=== PATIENT | female | born 1955 | race Caucasian/White ===

== ENCOUNTER → 2020-02-13 14:57 | Outpatient (CLI) | payer OTHER, SELFPAY ==
[2020-02-16 09:51] LABS: COVID19 Sendout Not Detected (Not Detect)
== END ==
PROVIDERS: Visit Provider Physician Assistant
DX: Z11.59 Encounter for screening for other viral diseases (principal)
CPT/HCPCS: 87635

== ENCOUNTER 2020-02-17 17:07 | Observation (INO) | payer OTHER, MEDICAID, SELFPAY ==
[2020-02-13 13:44] VITALS: BMI 38.5
[2020-02-16] VITALS (17 sets, daily range): BP systolic 114–157; BP diastolic 65–89; PULSE 52–71; RESP 8–20; TEMP 35.7–36.8; O2SAT 92–99; BMI 38.4
[2020-02-16] MEDS: LACTATED RINGERS 1,000 ML 42 ML IV (09:45)
[2020-02-16] MEDS: CELECOXIB 200 MG CAPSULE PO (09:45)
[2020-02-16] MEDS: ACETAMINOPHEN 325 MG TABLET 975 MG PO (09:45)
[2020-02-16] MEDS: PREGABALIN 75 MG CAPSULE PO (09:45)
--- NOTE | 2020-02-16 10:35 | PM.PREOP ---
Pre-operative Note COVID-19 COVID-19 status: Negative Result date/Date tested (Pos, Neg/Pending): 02/13/20 Interval Note History & Physical reviewed/Exam performed by Physician: Yes Changes to H&P: No
--- NOTE | 2020-02-16 10:51 | PM.OP.1 ---
Operative Date/Time/Diagnoses Date of procedure: 02/16/20 Time of procedure: 13:13 Pre-op diagnosis: Left knee osteoarthritis Post-op diagnosis: same Procedure & Clinicians Procedure: Left total knee replacement Same procedure as scheduled: Yes Indications: The patient has had progressively worsening left knee pain with radiographic changes consistent with arthritis. Non-operative management has failed and the patient has requested total knee replacement. The risks, benefits and alternatives to surgery were discussed with the patient prior to proceeding. Risks discussed included, but were not limited to, failure to relieve pain, stiffness, infection, nerve damage, deep venous thrombosis, pulmonary embolism, stroke, coma, heart attack, permanent paralysis and , as well as the potential need for eventual revision of the prosthetic. Surgeon: Felix Curtis Right Of Way Worker: Viet Mackey Click Yes if Unassisted: No Anesthesia Type: General, Spinal and Local Operative Notes Findings: Tricompartmental osteoarthritis worst in the medial compartment, moderate in patellofemoral and lateral compartments. Closure Type: primary Specimen(s): none sent Prosthetic devices, grafts, tissues, transplants, or devices: Implants used in this procedure were manufactured by the [employer] and included the BCS II Journey total knee replacement with a size 5 left Oxinium femoral component, a size 4 left non porous tibial base plate, a 10 mm cross-linked polyethylene tibial insert, and a 29 mm oval armani II patellar component. Applied: implant(s) Estimated Blood Loss (mL): 50 Blood products transfused: none Tourniquet time (min): 49 Procedure in detail: The patient was seen in the pre-operative area, where the left knee was identified as the operative site and this was marked with my initials. The patient received pre-operative antibiotics, and was taken to the operating room and placed on the operative table in the supine position. After satisfactory anesthesia, a flight crew time clerk out was performed. The left leg was encircled with a tourniquet about the proximal thigh, and the leg was prepared from the toes to the tourniquet with ChloroPrep in the usual fashion and draped through sterile drapes. The leg was elevated and exsanguinated with Eschmark bandage and the tourniquet inflated to 250 mmHg pressure. The knee was approached through an approximately 18 cm incision centered over the patella and carried into the knee through a medial parapatellar arthrotomy. The anterior osteophytes and soft tissues were removed. The rotational landmarks of [place]'s line and the transepicondylar axis were marked on the femur with electrocautery, and intramedullary guide holes for the femur and tibia were created. The distal femoral cut was made in 6 degrees of valgus using the intramedullary guide at the primary cut setting. The proximal tibial cut was then made using the intramedullary guide, taking 9 mm of bone off the less involved side. The extension gap was checked and the rotation of the femoral component confirmed with the gap balancing blocks. The anterior, posterior and chamfer cuts were then made. The posterior osteophytes and soft tissues were then removed. The posterior capsule was injected with part of a mixture of 60 ml 0.25% Marcaine mixed with 20 ml Exparel and 4 mg of morphine for post-operative pain control. The remainder of this mixture was injected into the capsule and subcutaneous tissues during cement curing. The tibia was prepared with the rotation set by an extra medullary guide. Trial tibial and femoral components were then placed and the intercondylar notch cut through the femoral trial. Range of motion was 0-135 degrees, with good stability throughout the range. The patella was then cut to accommodate the patellar prosthetic. There was no need for a lateral release. The trials were then removed, and the femoral hole plugged with a bone plug. The bone was prepared with pulsatile lavage, and dried with a sponge. Cement was applied and the final prosthetics placed. Excess cement was removed during and after cement curing. After confirming there was no extruded cement posteriorly, the final tibial insert was placed. The knee was copiously irrigated and the tourniquet deflated. Hemostasis was obtained. The capsule was closed with interrupted # 2 polyester sutures. The subcutaneous layer was closed with 3-0 Vicryl, and the skin with a running 3-0 V-Lock suture and Dermabond. An Aquacel Ag dressing was applied and the patient was taken to recovery having tolerated the procedure well. Complications: none Post-operative Condition: stable Disposition: PACU Plan for aftercare: The patient will be maintained on a standard total knee replacement protocol with weight bearing as tolerated. The patient will receive aspirin and sequential compression devices for DVT prophylaxis. The patient will be discharged home when safe for the home environment.
[2020-02-16] MEDS: CEFAZOLIN 2 GM/100 ML FROZ.PIGGY IV (11:42)
--- NOTE | 2020-02-16 12:03 | SUR.OPER ---
Supine on padded OR bed. Pillow under head, arms secured on padded armboards <90 degree abduction. Safety belt across torso. Non-operative leg secured with tape over blanket over lower leg. Operative leg secured in [place]. Foam padded brace at thigh of operative leg.
[2020-02-16] MEDS: BUPIVACAINE 0.25% W/ EPI 30 ML VIAL 60 ML INJ (12:45)
[2020-02-16] MEDS: BUPIVACAINE LIPOSOME 266 MG/20 ML VIAL INJ (12:46)
[2020-02-16] MEDS: TRANEXAMIC ACID 1,000 MG VIAL 1000 MG INJ ×2 (12:46→13:09)
[2020-02-16] MEDS: MORPHINE 4 MG/ML INJ INJ (12:46)
--- NOTE | 2020-02-16 13:13 | DI.RAD.S_ITS ---
PROCEDURE: XR KNEE LT 1TO2V INDICATIONS: post op total knee. TECHNIQUE: 2 view(s) of the knee acquired. COMPARISON: None. FINDINGS: Bones: Patient is status post knee joint arthroplasty. Hardware components are in expected positions. Visualized bony structures are intact. Soft tissues: Overlying postoperative changes are noted. IMPRESSION: Expected postoperative appearance. Dictated by: Julio Cesar Anton M.D. on 02/16/2020 at 15:54 Approved by: Julio Cesar Anton M.D. on 02/16/2020 at 15:54
--- NOTE | 2020-02-16 14:00 | SUR.PHASEI ---
1400 to room 222, report to VALERY Mohr via phone. Clothing bag and cpap to room with the patient.
[2020-02-16] MEDS: LACTATED RINGERS 1,000 ML 100 ML IV ×2 (14:42→23:33)
--- NOTE | 2020-02-16 15:39 | PC.NURSE ---
Patient arrived from PACU to room 222, VSS, denies pain. Oriented to room and call light, with call light placed within reach. Bed alarm activated for safety. Aquacel dressing to left knee with CHAO wrap surrounding noted to be CDI without drainage or bleeding, ice pack in place. +CMS, patient able to slowing bend left knee and start to lift off bed. Able to wiggle toes and do ankle pumps. Calf SCD's on. IV fluids started as ordered, and patient given ice chips per her request, advance diet as tolerated. Continue to monitor for post op void, denies urge to urinate at this time.
[2020-02-16] MEDS: ONDANSETRON 4 MG/2 ML INJ IV ×2 (16:32→20:51)
[2020-02-16] MEDS: IBUPROFEN 400 MG TABLET PO ×2 (16:32→20:55)
[2020-02-16] MEDS: HYDROMORPHONE 2 MG TABLET PO ×2 (18:39→22:53)
[2020-02-16] MEDS: ASPIRIN EC 81 MG TABLET PO (20:46)
[2020-02-16] MEDS: LOSARTAN 25 MG TABLET PO (20:46)
[2020-02-16] MEDS: DOCUSATE 100 MG CAPSULE PO (20:46)
[2020-02-16] MEDS: atenoloL 50 MG TABLET PO (20:47)
[2020-02-16] MEDS: ACETAMINOPHEN 325 MG TABLET 650 MG PO (20:47)
[2020-02-16] MEDS: diphenhydrAMINE 25 MG TABLET 50 MG PO (20:47)
[2020-02-17] VITALS (9 sets, daily range): BP systolic 116–148; BP diastolic 60–76; PULSE 57–87; RESP 16–19; TEMP 35.9–37.4; O2SAT 95–98
[2020-02-17] MEDS: IBUPROFEN 400 MG TABLET PO ×5 (00:40→18:16)
[2020-02-17] MEDS: HYDROMORPHONE 2 MG TABLET PO (04:24)
[2020-02-17 05:41] LABS: Hemoglobin 11.1 g/dL (12.0-16.0)
--- NOTE | 2020-02-17 07:52 | P.DS_ITS ---
History of Present Illness History of Present Illness Date Patient Seen: 02/17/20 Time Patient Seen: 07:52 Chief complaint: OPB Narrative: History and physical is contained in the chart previously completed note. Please refer to that note for this information. Discharge Providers Provider Discharge Date: 02/17/20 Primary care physician: SARAH Coles Consults: 02/04/20 14:29 Consult to Respiratory Therapy Evaluate & Treat Comment: INPT 02/15-[facility], awaiting CPAP Physician Instructions: Evaluate and treat 02/16/20 07:42 Consult to Anesthesiology Routine Comment: Consulting Provider: Anesthesiologist Reason for consultation: Regional block for post operative pain control 02/16/20 09:42 Consult to Respiratory Therapy Evaluate & Treat Comment: Physician Instructions: Evaluate and treat 02/16/20 14:31 Consult to Discharge Planning Routine Comment: Consult to Physical Therapy Evaluate & Treat Comment: Physician Instructions: postop TKA protocol Discharge provider: Felix Curtis MD Summary Hospital Course Discharge Diagnosis: 1. Left knee osteoarthritis 2. Post hemorrhagic anemia Hospital Course: The patient was admitted to the hospital and taken directly to the operating room on February 16, 2020. She underwent a left total knee re placement without complications. On postoperative day 1 she was stable and relatively pain-free. At the time of this dictation the plan is for her to have physical therapy today and be discharged later in the day. Status at Discharge Cognitive/behavioral status at discharge: oriented Functional status at discharge: uses cane/walker Overall status at discharge: patient is progressing back to baseline Time Spent with Patient Time spent: Less than 30 minutes Exam Vital Signs (past 8 hours): - 02/16/20 23:58 02/17/20 04:29 Temperature 96.8 F L 96.7 F L Pulse Rate 64 61 Respiratory Rate 16 16 Blood Pressure 135/75 116/60 Pulse Oximetry 96 97 Oxygen Delivery Method Room Air Oxygen Flow Rate 0 Narrative Exam Narrative: Left knee wound is dressed with no drainage on the bandage. Calf is soft. Light touch and motion are intact in the left lower extremity. Objective Labs Result Diagrams: 02/17/20 05:00 Labs: Laboratory Results - last 24 hr 02/17/20 05:00 Hgb 11.1 L Hct 33.0 L Discharge Assessment & Plan Assessment and Plan Assessment: Stable postop day 1 after left total knee replacement. She does have a mild, anticipated post hemorrhagic anemia. Plan of Treatment: Physical therapy this morning. Likely discharge later in the day. Follow up in my office in 10-14 days. Discharge prescriptions for hydromorphone and Vistaril have been provided. DVT prophylaxis will be with low-dose aspirin. Discharge Plan Discharge Plan Patient Disposition: Home Discharge Med Rec/Prescriptions Prescriptions: New acetaminophen 325 mg Tablet 650 mg PO TID 30 Days Qty: 180 RF: 0 aspirin 81 mg Tablet,Delayed Release (Dr/Ec) 81 mg PO BID 42 Days Qty: 84 RF: 0 hydromorphone 2 mg Tablet 2 mg PO Q4H PRN (Reason: Pain, Severe (7-10)) Qty: 40 RF: 0 hydroxyzine pamoate 25 mg Capsule 25 mg PO Q6HR PRN (Reason: Nausea) Qty: 30 RF: 0 Continued losartan 25 mg Tablet 25 mg PO BEDTIME RF: 0 diclofenac sodium 75 mg Tablet,Delayed Release (Dr/Ec) 75 mg PO BID RF: 0 atenolol 50 mg Tablet 50 mg PO BEDTIME RF: 0 diphenhydramine HCl [Benadryl] 25 mg Capsule 50 mg PO BEDTIME RF: 0 Discontinued acetaminophen 500 mg Tablet 1,000 mg PO DAILY RF: 0 Follow up/Referrals: Felix Curtis MD [Physician] - 2 Weeks Discharge Orders: Discharge (Order); Ordered 02/17/20 Ordered By: Felix Curtis Provider Discharge Instructions Diet: Diet as Tolerated and Regular Activity: You may bear weight as tolerated on your left leg. Cold/Heat Therapy: Apply ice for 15 minutes every hour as needed for pain control to the left knee. Skin/Wound/Dressing Care Report to your healthcare provider any signs of infection, such as:: chills, fever, night sweats, increased pain, unusual drainage and unusual redness Dressing: Remove the Erasto wrap 3 days after surgery. You may then shower nor selma. Leave the deeper dressing intact until your follow-up appointment. If the central strip of the deeper dressing becomes saturated with either water or blood, please call the office. Visit Report/Discharge Packet Instructions: DI for Knee Replacement Stand Alone Forms: Surgery Discharge Discharge Data Primary Care Provider: Corina Chaney Attending Provider: Felix Curtis Quality VTE Deep Vein Thrombosis/Pulmonary Embolism Present on Admission: No
[2020-02-17] MEDS: ONDANSETRON 4 MG ODT PO (08:07)
[2020-02-17] MEDS: ACETAMINOPHEN 325 MG TABLET 650 MG PO ×3 (08:08→21:31)
[2020-02-17] MEDS: HYDROMORPHONE 4 MG TABLET PO ×4 (08:08→23:48)
[2020-02-17] MEDS: ASPIRIN EC 81 MG TABLET PO ×2 (08:08→21:31)
[2020-02-17] MEDS: DOCUSATE 100 MG CAPSULE PO ×2 (08:08→21:32)
--- NOTE | 2020-02-17 09:30 | PT.IIE ---
Current Diagnoses Unilateral primary osteoarthritis, left knee (02/16/20) Surgery Performed Operation Date: 02/16/20 10:15 Actual Procedures p Total Knee Arthroplasty(Left) - Felix Curtis MD Surgical History (This Medical Record has been edited. Action required.) History of arthroplasty of right knee (Acute 11/2014) History of bladder surgery (Acute 2013) History of delivery (Acute) History of hysterectomy (Acute) History of removal of ovarian cyst (Acute) Hx of appendectomy (Acute) Hx of tonsillectomy (Acute) Medical History (This Medical Record has been edited. Action required.) Constipation (Acute) GERD (gastroesophageal reflux disease) (Acute) HLD (hyperlipidemia) (Acute) HTN (hypertension) (Acute) Kidney stones (Acute) Pre-diabetes (Acute) RBBB (Acute) Seasonal allergies (Acute) Sleep apnea (Acute) Physical Therapy Inpatient Evaluation/Re-Eval M1 PT/OT-IP Prior Functional Status Start: 02/17/20 12:00 Freq: NEEDED Status: Active Protocol: Document 02/17/20 09:30 AB (Rec: 02/17/20 12:15 [email or web address]) Medical Review Prior Functional Status Medical History Reviewed Yes Communication able to make needs known Mobility and Gait pt stated that she is independent with all mobilities and ambulation wtihout AD Social History Household Members none Living Arrangements House Number of Floors (Floors) One Floor Number of Stairs To Enter/Railing? 4 steps without rails to enter Home Environment Standard Height Toilet,Walk in Shower Home Equipment Raised Toilet Seat Without Armrests,Hand Held Shower Additional Social History Comment stated that her friend will stay with her and assist her at home as needed: at least 10 days per pt. pt stated that she has a standard walker and has access to a quad cane pt stated that she has an adjustable bed M2 PT-IP Current Condition Start: 02/17/20 12:00 Freq: NEEDED Status: Active Protocol: Document 02/17/20 09:30 AB (Rec: 02/17/20 12:15 AB [email or web address]) Physical Therapy Current Condition Current Condition Evaluation Date 02/17/20 Treatment Diagnosis s/p L TKA; difficulty in walking Onset Date 02/16/20 Weight Bearing Status Weight Bearing Status Weight Bear as Tolerated Allowed Weight Bearing Amount (enter % LLE WBAT or #) (%) M3 PT-IP Subjective Start: 02/17/20 12:00 Freq: NEEDED Status: Active Protocol: Document 02/17/20 09:30 AB (Rec: 02/17/20 12:15 [email or web address]) Subjective Physical Therapy Visit Type Type Initial Evaluation Visit Start Time 09:30 Visit Stop Time 10:10 Total Visit Minutes 40 Number of CUT OFF SAWYER Visits 0 Physical Therapy Visit Comments Patient Comments pt is agreeable to do PT Therapy Pain Assessment Pain When Pain Assessed At Rest Pain Present Pain Present Pain Reported Location Left Knee Intensity 3 Scale Used 7/10 with mobility Pain Management Techniques Apply Cold,Modification of Treatment,Re-positioning, Timing of Activity with Medications M4 PT-IP Mobility and Gait Start: 02/17/20 12:00 Freq: NEEDED Status: Active Protocol: Document 02/17/20 09:30 AB (Rec: 02/17/20 12:15 [id number]) PT-Bed Mobility Assessment Supine to Sit Supine to Sit Contact Guard Assistance,1 Person Assistance PT-Transfer Assessment Sit to and From Stand Sit to and from Stand Moderate Assistance,1 Person Assistance,Use of Upper Extremities Equipment Transfer Assistive Device Gait Belt,Front Wheeled Walker Orthotic/Prosthetic Devices or Brace: No Transfers Transfer Destination Toilet Transfer Technique ambulated using FWW Transfer Ability Level of Assist Moderate Assistance,1 Person Assistance,Use of Upper Extremities Comments Mobility Comments BP supine: 133/60 . completed supine to sit CGA and cues. pt was able to sit on EOB CGA. pt requested to use the toilet. completed sit to stand mod A and cues and ambulated towards the toilete using FWW mod A and cues for L quads activation. pt completed sit to stand from the toilet mod to max A using grab bar and ambulated towards the sink using FWW mod A and was able to maintain standing using FWW for support mod A while completing handwashing. pt c/o nausea and dizziness. instructed to walk to the chair and completed using FWW mod A. BP checked in sitti/72. positioned pt on chair. call light and table placed within reach. Gait Assessment Gait Gait Assistance Required: Moderate Assistance,1 Person Assist Distance (Feet) 10 Able to Maintain Weight Bearing Status Yes During Gait Assistive Devices Assistive Device Gait Belt,Front Wheeled Walker Orthotic/Prosthetic Devices or Brace: No Gait Deviations General Gait Pattern Antalgic,Decreased Stride Length,Decreased Feet Clearance,Step-to Gait Factors Limiting Gait Function Factors Limiting Gait Function Decreased Activity Tolerance, Decreased Strength,Limited Range of Motion,Pain,Poor Balance,Poor Safety Awareness Comments Gait Comments please refer to mobility section for details PT-Balance Assessment Sitting Balance and Reactions Static Sitting Balance Ability Good Dynamic Sitting Balance Ability Good Standing Balance and Reactions Static Standing Balance Ability Fair Dynamic Standing Balance Ability Poor Device Used FWW M5 PT-IP Objective Assessments Start: 02/17/20 12:00 Freq: NEEDED Status: Active Protocol: Document 02/17/20 09:30 AB (Rec: 02/17/20 12:15 AB [email or web address]) Orientation Orientation/Cognition Level of Alertness Alert Orientation Name Language Function Ability No Deficits Noted Safety Awareness Decreased Safety Awareness Memory Description No Deficits Noted Gross Range of Motion Lower Extremity ROM Assessment Left Impaired Impairments L knee flexion: ~ 50 dec L knee extension: 20 deg less to neutral Strength Lower Extremity Strength Assessment Left Impaired Hip 3+/ Knee 3+/5 Coordination Assessment Gross Coordination Gross Coordination WNL Sensation Assessment Sensation Gross Sensation WNL Muscle Tone Muscle Tone WNL Yes M6 PT-IP Treatment Start: 02/17/20 12:00 Freq: NEEDED Status: Active Protocol: Document 02/17/20 09:30 AB (Rec: 02/17/20 12:15 [facility] Treatment Education Education Provided Precautions,Weight Bearing Status,Post-Op Packet,Safety M7 PT-IP Assessment and Plan Start: 02/17/20 12:00 Freq: NEEDED Status: Active Protocol: Document 02/17/20 09:30 AB (Rec: 02/17/20 12:[facility] Summary Assessment and Plan Potential Rehabilitation Potential Good Status of Condition at Evaluation Evolving Summary Impairments Pain,ROM,Strength,Balance, Coordination,Sensation,Tone, Cognition,Bed Mobility, Transfers,Gait,Activity Tolerance Assessment Summary pt requiring mod to max A with mobility and unable to tolarate much activity with c/ o increase knee pain, nausea and dizziness. pt plans to go home with her friend to assist her. will conduct caregiver training when appropriate and also has to complete stair climbing prior to d/c. will continue to assess progress for safe d/c. Goals Bed Mobility Goal Independent Transfer Goal Standby Assistance,Front Wheeled Walker Gait Goal Standby Assistance,Front Wheel Walker Gait Distance 150 Other Goals ambulate using standard walker SBA 200 ft up/down 4 steps using cane CGA Days to Meet Goals 5 Frequency of Treatment Frequency Of Treatment Twice a Day Treatment Plan Physical Therapy Treatment Plan Bed Mobility Training,Transfer Training,Gait Training, Therapeutic Exercise,Balance Retraining,Post Op Education, Discharge Planning,Hot or Cold Pack,Neuromuscular Re-ed, Coordination Retraining,Manual Therapy Recommendations To Nursing Amount of Assist Needed 1 Person Assist Discharge Recommendations PT Discharge Recommendations Home with Assistance, Outpatient PT Equipment Needed for Home Before FWW if not safe with standard Discharge walker Transportation Needs at Discharge Private Vehicle
--- NOTE | 2020-02-17 11:56 | PC.NURSE ---
Day shift: Pt asleep at this time (1200). Has been asleep for approx 1 hour. Worn out and emotional after working w/ PT this AM. Medicated for knee pain per AUG. Pt does have stairs at home. Unlikely Pt will be able to d/c today. Pain present and her strength is weak. Will report this to or the PA. Pt has her CPAP on at this time.
--- NOTE | 2020-02-17 12:49 | CM.DANOTE ---
DCP/Assessment: Reviewed chart. Patient is a 64yr old female admitted for elective left knee surgery performed on 02-16-[address] Curtis. PCP listed is Corina Chaney. Primary payor is 1)[facility] 2)Medicaid. Met with patient explained CM/SW role. Patient sitting in recliner at time of visit. Patient teary eyed due to pain. Patient reports that she had just gotten up with therapy. Patient hopes to d/c home tomorrow. Patient has supportive friend/Barbara that will be staying with her. Patient has needed DME and has outpatient appointment with therapy arranged. P: Home when stable. LYNDA Arteaga Discharge Planning/Care Management CM Discharge Assessment Start: 02/17/20 12:46 Freq: Status: Active Protocol: Document 02/17/20 12:46 KJS (Rec: 02/17/20 12:49 KJS [id number]) Discharge Planning Assessment Assigned Hoop Bender [employer] LYNDA Arteaga Contact Information Barbara Munoz (friend) [phone] Advance Directives? No History Provided By Patient,Medical Record Prior Living Arrangements House Household Members none Independent with ADL's Yes Is patient alert and oriented? Yes Caregiver for Another No DME Already Rented / Owned FWW / Walker,Cane Patient/Family Preference OP PT Therapy Comment Has appointment on 02-20-20 at [facility] in [place]. Barriers to Discharge No Discharge Plan Home Transportation Arrangement Patient has friend/Barbara that will be providing transport and assisting with ADL's. Whiteboard Updated in Patient Room with Yes name and ext. # of Ho[employer] Bender Tank Review Status In Process Next Review Type Continued Stay Review Pre-Anesthesia Assessment Start: 02/04/20 13:56 Freq: Status: Complete Protocol: Document 02/13/20 13:44 CAB (Rec: 02/04/20 14:29 CAB [id number]) Pre-Anesthesia Assessment Patient Information Reviewed Via Phone Assessment Assessment Completed With Patient Diagnostic Results BMP/CMP,CBC,EKG Comment Outside labs/EKG scanned to records COVID screen @ 02/12-pending Primary Care Provider Shanel Beltran Seen Specialist in Last 12 Months Yes Specialist Seen Agricultural Produ[employer] Commission Agent,Orthopedist Primary Language [place]ish Senior Program Planner Required No Height 157.48 cm Weight 95.708 kg Body Mass Index (BMI) 38.5 Hearing Ability Normal Visual Assist Glasses Dentition Type Teeth, Natural Present,Teeth, Missing Barriers to Learning None,Visual Hx Anesthesia Reactions No Hx Family Anesthesia Reaction No Hx Malignant Hyperthermia No Hx Blood Transfusions No Anesthesia Review Requested No alcohol intake current alcohol intake frequency a few times a month Smoking Status Former smoker how long ago did patient quit smoking Quit 35 years ago Substance Use Type does not use Pain Present Pain Reported Musculoskeletal Symptoms Abnormal Gait,Back Pain, Difficulty Walking,Joint Pain, Neck Pain History of Falling (Recent or History of No ) Patient is completely paralyzed or No completely immobile Mental Status Oriented to own ability Is patient on oxygen? No Does patient have CASTANO/SOB No Hx Sleep Apnea Yes: Awaiting CPAP equipment Currently Taking a Beta Des No Can You Climb a Flight of Stairs Without No SOB Hx Chest Pain No Hx SOB No Hx Syncope or Dizziness No Anti-Coagulant Therapy No Has a Agricultural Produce Commission Agent Yes[facility] Cardiac Testing No Hx Pacemaker/ICD No Pacemaker Rep Required? No Cardiac Clearance Received Yes Comment Cardiac records scanned to record Diet Type At Home Regular dysphagia No Gastrointestinal Symptoms Constipation Urinary Catheter Present No Hx Urinary Self Catheterization No Diabetes No: Pre-diabetes Patient No Lactating No Hx Drug Resistant Organism No Presence of External or Internal Medical Yes: Right knee prosthesis Devices Have you had any close contact with No someone diagnosed with COVID-19? Marital Status Single Lives With none Prior Living Arrangements House Number of Floors (Floors) One Floor Support System Friend(s) Does the Patient Have Assistance After Yes: Friend will stay w/pt at Surgery DC Patient Discharge Plan Description Return Home Comment Pt advised overnight length of stay per surgeon Feels Safe in Current Environment Yes Been Physically Hurt or Threatened By a No Person in Current Environment Do you have thoughts of harming yourself None or others? Are you currently considering suicide? No Do you have a plan to hurt yourself or No Plan others? Do You Have Any Spiritual Beliefs That No May Affect Your HC Choices? Do You Have Any Cultural Practices That No May Affect Your HC Choices? Comment Jose Who Can We Speak to About Patient's Care Family, friends Identifying Code for Release of Patient Declines to issue Information Health Care Proxy/Next of Kin Micah (son) Shira ( Micah's ) Health Care Proxy Emergency Contact Name Micah (son) Shira ( Micah's ) Emergency Contact Advance Directives? No Power of Vp Ancillary No PAC Instructions Bring CPAP/BIPAP,Do not shave/ clip surgical site,Durable medical equipment,Nasal antibiotic,No ETOH/petroleum product on skin DOS,NPO,Pre- surgical wash,Sensory aids, Sturdy shoes/comfortable clothes,Do not bring valuables and remove jewelry
--- NOTE | 2020-02-17 13:20 | PT.IPTN ---
Current Diagnoses Unilateral primary osteoarthritis, left knee (02/16/20) Surgery Performed Operation Date: 02/16/20 10:15 Actual Procedures p Total Knee Arthroplasty(Left) - Felix Curtis MD Physical Therapy Treatment Note M2 PT-IP Current Condition Start: 02/17/20 12:00 Freq: NEEDED Status: Active Protocol: Document 02/17/20 09:30 AB (Rec: 02/17/20 12:15 AB [id number]) Physical Therapy Current Condition Current Condition Evaluation Date 02/17/20 Treatment Diagnosis s/p L TKA; difficulty in walking Onset Date 02/16/20 Weight Bearing Status Weight Bearing Status Weight Bear as Tolerated Allowed Weight Bearing Amount (enter % LLE WBAT or #) (%) M3 PT-IP Subjective Start: 02/17/20 12:00 Freq: NEEDED Status: Active Protocol: Document 02/17/20 13:20 AB (Rec: 02/17/20 16:21 AB [email or web address]) Subjective Physical Therapy Visit Type Type Treatment Note Visit Start Time 13:20 Visit Stop Time 13:50 Total Visit Minutes 30 Number of STREETSWEEPER OPERATOR Visits 0 Physical Therapy Visit Comments Patient Comments pt is agreeable to do PT Therapy Pain Assessment Pain When Pain Assessed At Rest Pain Present Pain Present Pain Reported Location Left Knee Intensity 7 Pain Management Techniques Apply Cold,Modification of Treatment,Re-positioning, Timing of Activity with Medications M4 PT-IP Mobility and Gait Start: 02/17/20 12:00 Freq: NEEDED Status: Active Protocol: Document 02/17/20 13:20 AB (Rec: 02/17/20 16:21 AB [email or web address]) PT-Bed Mobility Assessment Supine to Sit Supine to Sit Standby Assistance Sit to Supine Sit to Supine Maximum Assistance,1 Person Assistance PT-Transfer Assessment Sit to and From Stand Sit to and from Stand Contact Guard Assistance Equipment Transfer Assistive Device Gait Belt,Front Wheeled Walker Orthotic/Prosthetic Devices or Brace: No Transfers Transfer Destination Toilet Transfer Technique ambulated using FWW Transfer Ability Level of Assist Contact Guard Assistance, Minimal Assistance,1 Person Assistance,Use of Upper Extremities Comments Mobility Comments completed supine to sit SBA. completed sit to stand CGA and ambulated to the toilet using FWW min A and cues. pt was able to complete toileting SBA . ambulated towards the sink using FWW CGA and was able to maintain standing against the counter SBA while completing handwashing. pt ambulated more in room using FWW ~ 30 ft CGA. requested to go back to bed. completed sit to supine max A for LLE elevation to the bed. positioned pt in bed . call light and table placed within reach. Gait Assessment Gait Gait Assistance Required: Contact Guard Assist,Minimum Assistance Distance (Feet) 30 Able to Maintain Weight Bearing Status Yes During Gait Assistive Devices Assistive Device Gait Belt,Front Wheeled Walker Gait Deviations General Gait Pattern Antalgic,Decreased Stride Length,Decreased Feet Clearance,Step-to Gait Factors Limiting Gait Function Factors Limiting Gait Function Decreased Activity Tolerance, Decreased Strength,Limited Range of Motion,Pain,Poor Balance,Poor Safety Awareness Comments Gait Comments pls refer to mobility section for details M5 PT-IP Objective Assessments Start: 02/17/20 12:00 Freq: NEEDED Status: Active Protocol: Document 02/17/20 09:30 AB (Rec: [facility]17/20 [email or web address] Orientation Orientation/Cognition Level of Alertness Alert Orientation Name Language Function Ability No Deficits Noted Safety Awareness Decreased Safety Awareness Memory Description No Deficits Noted Gross Range of Motion Lower Extremity ROM Assessment Left Impaired Impairments L knee flexion: ~ 50 dec L knee extension: 20 deg less to neutral Strength Lower Extremity Strength Assessment Left Impaired Hip 3+/ Knee 3+/5 Coordination Assessment Gross Coordination Gross Coordination WNL Sensation Assessment Sensation Gross Sensation WNL Muscle Tone Muscle Tone WNL Yes M6 PT-IP Treatment Start: 02/17/20 12:00 Freq: NEEDED Status: Active Protocol: Document 02/17/20 13:20 AB (Rec: 02/17/20 16:21 [email or web address]) Physical Therapy Treatment Exercises Exercises Heel Slides Education Education Provided Safety Other Treatments Other Treatment Performed completed heels slides prior to mobilization M7 PT-IP Assessment and Plan Start: 02/17/20 12:00 Freq: NEEDED Status: Active Protocol: Document 02/17/20 13:20 AB (Rec: 02/17/20 16:21 [email or web address]) PT Summary Assessment and Plan Potential Rehabilitation Potential Good Summary Impairments Pain,ROM,Strength,Balance, Coordination,Sensation,Tone, Cognition,Bed Mobility, Transfers,Gait,Activity Tolerance Progress Towards Goals Slow Progress due to Pain Assessment Summary pt progressing slowly but continues to c/o increase pain affecting mobility. pt agreed on caregiver training with her friend at 1 pm tomorrow and stated that she can call her friend to come in . will also conduct stair climbing training prior to d/c . Goals Bed Mobility Goal Independent Transfer Goal Standby Assistance,Front Wheeled Walker Gait Goal Standby Assistance,Front Wheel Walker Gait Distance 150 Other Goals ambulate using standard walker SBA 200 ft up/down 4 steps using cane CGA Days to Meet Goals 5 Frequency of Treatment Frequency Of Treatment Twice a Day Treatment Plan Physical Therapy Treatment Plan Bed Mobility Training,Transfer Training,Gait Training, Therapeutic Exercise,Balance Retraining,Post Op Education, Discharge Planning,Hot or Cold Pack,Neuromuscular Re-ed, Coordination Retraining,Manual Therapy Other Recommendations and Next Treatment caregiver training 02/18/20 @ [facility] 1pm; stair climbing Recommendations To Nursing Amount of Assist Needed 1 Person Assist Discharge Recommendations PT Discharge Recommendations Home with Assistance, Outpatient PT Equipment Needed for Home Before FWW if not safe with standard Discharge walker Transportation Needs at Discharge Private Vehicle
--- NOTE | 2020-02-17 18:44 | PC.NURSE ---
Pt c/o left knee surgical pain 01/11 with activity. medicated with dilaudid 4mg po and ibu 400mg po ice to knee. up to br using walker and sba, sat in chair for a few minutes then back to bed..voided 600 and back rub given. cms wnl pp + cap refill less than 2sec.
[2020-02-17] MEDS: LOSARTAN 25 MG TABLET PO (21:29)
[2020-02-17] MEDS: atenoloL 50 MG TABLET PO (21:30)
[2020-02-17] MEDS: diphenhydrAMINE 25 MG TABLET 50 MG PO (21:32)
[2020-02-18] VITALS: BP 146/76; PULSE 66; RESP 16; TEMP 36.7; O2SAT 95
[2020-02-18] MEDS: HYDROMORPHONE 4 MG TABLET PO (04:10)
[2020-02-18] MEDS: IBUPROFEN 400 MG TABLET PO ×3 (04:10→13:48)
[2020-02-18 04:15] VITALS: BP 116/74; PULSE 64; RESP 18; TEMP 36.2; O2SAT 96
--- NOTE | 2020-02-18 05:00 | PC.NURSE ---
Assumed care of patient at 0300. Patient A/Ox3, reports pain 4/10 in LLE. PRN and scheduled medication given. Dsg is covered with CHAO wrap at this time. Patient denies numbness/tingling in LLE, CMS intact bilaterally. SCD's on. Patient voiding using bedpan during the night. Saline locked. Belongings in reach. Call light in reach. Patient denies further needs at this time.
--- NOTE | 2020-02-18 07:38 | PM.DS.1 ---
History of Present Illness History of Present Illness Date Patient Seen: 02/18/20 Time Patient Seen: 07:38 Chief complaint: OPB Narrative: History and physical is contained in the chart previously completed note. Please refer to that note for this information. Discharge Providers Provider Date of admission: 02/17/20 17:07 Discharge Date: 02/18/20 Primary care physician: SARAH Coles Consults: 02/04/20 14:29 Consult to Respiratory Therapy Evaluate & Treat Comment: INPT 02/15-[facility], awaiting CPAP Physician Instructions: Evaluate and treat 02/16/20 07:42 Consult to Anesthesiology Routine Comment: Consulting Provider: Anesthesiologist Reason for consultation: Regional block for post operative pain control 02/16/20 09:42 Consult to Respiratory Therapy Evaluate & Treat Comment: Physician Instructions: Evaluate and treat 02/16/20 14:31 Consult to Discharge Planning Routine Comment: Consult to Physical Therapy Evaluate & Treat Comment: Physician Instructions: postop TKA protocol Discharge provider: Felix Curtis MD Summary Hospital Course Discharge Diagnosis: 1. Left knee osteoarthritis 2. Posthemorrhagic anemia Hospital Course: The patient was admitted to the hospital and taken directly to the operating room on February 16, 2020. She underwent a left total knee replacement without difficulty. She was having pain control issues on postoperative day 1 which limited her ability to progress with physical therapy. As a result her discharge was held until postoperative day 2. At the time of this dictation plan is for to have 1-2 physical therapy appointments today as an inpatient and then discharge her home. Status at Discharge Cognitive/behavioral status at discharge: oriented Functional status at discharge: uses cane/walker Overall status at discharge: patient is progressing back to baseline Time Spent with Patient Time spent: Less than 30 minutes Exam Vital Signs (past 8 hours): - 02/18/20 00:00 02/18/20 04:15 Temperature 98.0 F 97.2 F L Pulse Rate 66 64 Respiratory Rate 16 18 Blood Pressure 146/76 H 116/74 Pulse Oximetry 95 96 Oxygen Delivery Method CPAP Oxygen Flow Rate 0 Narrative Exam Narrative: Left knee wound is dressed with minimal drainage on the bandage. Calf is soft. Light touch and motion are intact in the left lower extremity. Objective Labs Result Diagrams: 02/17/20 05:00 Discharge Assessment & Plan Assessment and Plan Assessment: Stable postop day 2 after left total knee replacement. She does have a mild, anticipated post hemorrhagic anemia. Progress has been slow with physical therapy due to pain control difficulties. Plan of Treatment: Physical therapy this morning and possibly this afternoon. Likely discharge later in the day. Follow up in my office in 10-14 days. Discharge prescriptions for hydromorphone and Vistaril have been provided. DVT prophylaxis will be with low-dose aspirin. Discharge Plan Discharge Plan Patient Disposition: Home Discharge orders & Medications Prescriptions: New acetaminophen 325 mg Tablet 650 mg PO TID 30 Days Qty: 180 RF: 0 aspirin 81 mg Tablet,Delayed Release (Dr/Ec) 81 mg PO BID 42 Days Qty: 84 RF: 0 hydromorphone 2 mg Tablet 2 mg PO Q4H PRN (Reason: Pain, Severe (7-10)) Qty: 40 RF: 0 hydroxyzine pamoate 25 mg Capsule 25 mg PO Q6HR PRN (Reason: Nausea) Qty: 30 RF: 0 Continued losartan 25 mg Tablet 25 mg PO BEDTIME RF: 0 diclofenac sodium 75 mg Tablet,Delayed Release (Dr/Ec) 75 mg PO BID RF: 0 atenolol 50 mg Tablet 50 mg PO BEDTIME RF: 0 diphenhydramine HCl [Benadryl] 25 mg Capsule 50 mg PO BEDTIME RF: 0 Discontinued acetaminophen 500 mg Tablet 1,000 mg PO DAILY RF: 0 Follow up/Referrals: Corina Chaney ARNP [Primary Care Provider] - Felix Curtis MD [Physician] - 2 Weeks Diet/Activity/Treatments Diet: Diet as Tolerated and Regular Activity: You may bear weight as tolerated on your left leg. Cold/Heat Therapy: Apply ice for 15 minutes every hour as needed for pain control to the left knee. Skin/Wound/Dressing Care Report to your healthcare provider any signs of infection, such as:: chills, fever, night sweats, increased pain, unusual drainage and unusual redness Dressing: Remove the Erasto wrap 3 days after surgery. You may then shower normally. Leave the deeper dressing intact until your follow-up appointment. If the central strip of the deeper dressing becomes saturated with either water or blood, please call the office. Visit Report/Discharge Packet Instructions: DI for Knee Replacement Stand Alone Forms: Surgery Discharge Discharge Data Primary Care Provider: Corina Chaney Attending Provider: Felix Curtis Admit Date/Time: 02/17/20 17:07 Quality VTE Deep Vein Thrombosis/Pulmonary Embolism Present on Admission: No
[2020-02-18 07:42] VITALS: BP 149/78; PULSE 61; RESP 19; TEMP 36.9; O2SAT 95
[2020-02-18] MEDS: ASPIRIN EC 81 MG TABLET PO (08:19)
[2020-02-18] MEDS: DOCUSATE 100 MG CAPSULE PO (08:19)
[2020-02-18] MEDS: ACETAMINOPHEN 325 MG TABLET 650 MG PO (08:19)
[2020-02-18 08:31] VITALS: BP 140/83; PULSE 68; RESP 20; TEMP 36.8; O2SAT 98
[2020-02-18] MEDS: HYDROMORPHONE 2 MG TABLET PO ×2 (08:31→12:24)
--- NOTE | 2020-02-18 09:45 | PT.IPTN ---
Current Diagnoses Unilateral primary osteoarthritis, left knee (02/17/20) Surgery Performed Operation Date: 02/16/20 10:15 Actual Procedures p Total Knee Arthroplasty(Left) - Felix Curtis MD Physical Therapy Treatment Note M2 PT-IP Current Condition Start: 02/17/20 12:00 Freq: NEEDED Status: Active Protocol: Document 02/17/20 09:30 AB (Rec: 02/17/20 12:15 AB [email or web address]) Physical Therapy Current Condition Current Condition Evaluation Date 02/17/20 Treatment Diagnosis s/p L TKA; difficulty in walking Onset Date 02/16/20 Weight Bearing Status Weight Bearing Status Weight Bear as Tolerated Allowed Weight Bearing Amount (enter % LLE WBAT or #) (%) M3 PT-IP Subjective Start: 02/17/20 12:00 Freq: NEEDED Status: Active Protocol: Document 02/18/20 09:45 AB (Rec: 02/18/20 12:42 AB [email or web address]) Subjective Physical Therapy Visit Type Type Treatment Note Visit Start Time 09:45 Visit Stop Time 10:47 Total Visit Minutes 62 Number of MANAGED CARE NURSE Visits 0 Physical Therapy Visit Comments Patient Comments pt is agreeable to do PT Therapy Pain Assessment Pain When Pain Assessed At Rest Pain Present Pain Present Pain Reported Location Left Knee Intensity 5 Scale Used Numeric (0 - 10) Pain Management Techniques Apply Cold,Modification of Treatment,Re-positioning, Timing of Activity with Medications M4 PT-IP Mobility and Gait Start: 02/17/20 12:00 Freq: NEEDED Status: Active Protocol: Document 02/18/20 09:45 AB (Rec: 02/18/20 12:42 AB [id number]) PT-Bed Mobility Assessment Supine to Sit Supine to Sit Contact Guard Assistance,1 Person Assistance PT-Transfer Assessment Sit to and From Stand Sit to and from Stand Standby Assistance,1 Person Assistance,Use of Upper Extremities Equipment Transfer Assistive Device Gait Belt,Front Wheeled Walker Orthotic/Prosthetic Devices or Brace: No Transfers Transfer Destination Toilet Transfer Technique ambulated using FWW Transfer Ability Level of Assist Standby Assistance,Contact Guard Assistance,1 Person Assistance,Use of Upper Extremities Comments Mobility Comments pt completed supine to sit CGA . pt stated that she needs assistance with LLE. completed sit to stand SBA to CGA and ambulated to the toilet using FWW SBA. completed toileting SBA and ambulated to the sink SBA using FWW. was able to maintain standing against the counter SBA while completing handwashing and grooming. ambulated using FWW ~ [address]. assisted to the stairs. educated pt on up/down steps. attempted up/down step using SPC and HUMAN RESOURCES VICE PRESIDENT but pt unable to complete. completed up/down steps using bilateral rails mod A and cues . showed pt another way to get up stair with use of FWW and pt completed one step backwards min to mod A and able to step back down mod A and cues. pt refused further stair climbing training. stated that she will do it when her friend comes to pick her up. assisted pt back to her room. ambulated from w/c to chair SBA. positioned pt on chair. call light and table placed within reach. Gait Assessment Gait Gait Assistance Required: Standby Assistance Distance (Feet) 50 Able to Maintain Weight Bearing Status Yes During Gait Assistive Devices Assistive Device Gait Belt,Front Wheeled Walker Orthotic/Prosthetic Devices or Brace: No Gait Deviations General Gait Pattern Antalgic,Decreased Stride Length,Decreased Feet Clearance Factors Limiting Gait Function Factors Limiting Gait Function Decreased Activity Tolerance, Decreased Strength,Limited Range of Motion,Pain,Poor Balance,Poor Safety Awareness Stair Climbing Assessment Evaluation Level of Assist On Stairs Minimal Assistance,Moderate Assistance Devices Stair Climbing Assistive Devices Front Wheel Walker,Left Railing,Right Railing Technique/Endurance Stair Climbing Direction Ascend and Descend Stair Climbing Technique Step to Step Number of Steps Climbed 3 Stair Climbing Set # Repetitions (reps) 1 Comments Stair Climbing Comments pls refer to mobility section for details M5 PT-IP Objective Assessments Start: 02/17/20 12:00 Freq: NEEDED Status: Active Protocol: Document 02/17/20 09:30 AB (Rec: 02/17/20 12:15 AB [id number]) Orientation Orientation/Cognition Level of Alertness Alert Orientation Name Language Function Ability No Deficits Noted Safety Awareness Decreased Safety Awareness Memory Description No Deficits Noted Gross Range of Motion Lower Extremity ROM Assessment Left Impaired Impairments L knee flexion: ~ 50 dec L knee extension: 20 deg less to neutral Strength Lower Extremity Strength Assessment Left Impaired Hip 3+/ Knee 3+/5 Coordination Assessment Gross Coordination Gross Coordination WNL Sensation Assessment Sensation Gross Sensation WNL Muscle Tone Muscle Tone WNL Yes M6 PT-IP Treatment Start: 02/17/20 12:00 Freq: NEEDED Status: Active Protocol: Document 02/18/20 09:45 AB (Rec: 02/18/20 12:42 AB [id number]) Physical Therapy Treatment Education Education Provided Precautions,Weight Bearing Status,Safety M7 PT-IP Assessment and Plan Start: 02/17/20 12:00 Freq: NEEDED Status: Active Protocol: Document 02/18/20 09:45 AB (Rec: 02/18/20 12:42 AB [id number]) PT Summary Assessment and Plan Potential Rehabilitation Potential Good Summary Impairments Pain,ROM,Strength,Balance, Coordination,Sensation,Tone, Cognition,Bed Mobility, Transfers,Gait,Activity Tolerance Progress Towards Goals Slow Progress due to Pain,Slow Progress due to Activity Tolerance Assessment Summary pt requires SBa with ambulation but has difficulty doing stair climbing. set up caregiver training at 1pm later today with pt's friend. d/c plan depending if friend will be able to assist pt safely. will continue to assess. Goals Bed Mobility Goal Independent Transfer Goal Standby Assistance,Front Wheeled Walker Gait Goal Standby Assistance,Front Wheel Walker Gait Distance 150 Other Goals ambulate using standard walker SBA 200 ft up/down 4 steps using cane CGA Days to Meet Goals 5 Frequency of Treatment Frequency Of Treatment Twice a Day Treatment Plan Physical Therapy Treatment Plan Bed Mobility Training,Transfer Training,Gait Training, Therapeutic Exercise,Balance Retraining,Post Op Education, Discharge Planning,Hot or Cold Pack,Neuromuscular Re-ed, Coordination Retraining,Manual Therapy Other Recommendations and Next Treatment caregiver training 02/18/20 @ [facility] 1pm; stair climbing Recommendations To Nursing Amount of Assist Needed 1 Person Assist Discharge Recommendations PT Discharge Recommendations Home with Assistance, Outpatient PT Equipment Needed for Home Before FWW if not safe with standard Discharge walker Transportation Needs at Discharge Private Vehicle
[2020-02-18 11:30] VITALS: BP 143/77; PULSE 66; RESP 19; TEMP 36.9; O2SAT 97
--- NOTE | 2020-02-18 13:05 | PT.IPTN ---
Current Diagnoses Unilateral primary osteoarthritis, left knee (02/17/20) Surgery Performed Operation Date: 02/16/20 10:15 Actual Procedures p Total Knee Arthroplasty(Left) - Felix Curtis MD Physical Therapy Treatment Note M2 PT-IP Current Condition Start: 02/17/20 12:00 Freq: NEEDED Status: Active Protocol: Document 02/17/20 09:30 AB (Rec: 02/17/20 12:15 AB [id number]) Physical Therapy Current Condition Current Condition Evaluation Date 02/17/20 Treatment Diagnosis s/p L TKA; difficulty in walking Onset Date 02/16/20 Weight Bearing Status Weight Bearing Status Weight Bear as Tolerated Allowed Weight Bearing Amount (enter % LLE WBAT or #) (%) M3 PT-IP Subjective Start: 02/17/20 12:00 Freq: NEEDED Status: Active Protocol: Document 02/18/20 13:05 AB (Rec: 02/18/20 14:15 AB [id number]) Subjective Physical Therapy Visit Type Type Treatment Note Visit Start Time 13:05 Visit Stop Time 13:40 Total Visit Minutes 35 Number of [employer] Visits 0 Physical Therapy Visit Comments Patient Comments pt is agreeable to do PT; friend in room for caregiver training Therapy Pain Assessment Pain When Pain Assessed At Rest Pain Present Pain Present Pain Reported Location Left Knee Scale Used pain scale not stated Pain Management Techniques Distraction,Modification of Treatment,Re-positioning, Timing of Activity with Medications M4 PT-IP Mobility and Gait Start: 02/17/20 12:00 Freq: NEEDED Status: Active Protocol: Document 02/18/20 13:05 AB (Rec: 02/18/20 14:15 AB [id number]) PT-Transfer Assessment Sit to and From Stand Sit to and from Stand Standby Assistance Equipment Transfer Assistive Device Gait Belt,Front Wheeled Walker Orthotic/Prosthetic Devices or Brace: No Comments Mobility Comments caregiver training conducted. educated friend on how to use gait belt and how to assist pt. pt's friend was able to put safety belt on and assisted pt with sit to stand and ambulation using standard walker. pt ambulated ~ 60 ft. educated pt and friend on how to do stair climbing using standard walker and completed 3 steps with friend stabilizing walker. pt assisted back to room. ambulated from w/c to bed using standard walker SBA. NAC came in to assist pt and took over. pt and friend without any concerns. Gait Assessment Gait Gait Assistance Required: Standby Assistance Distance (Feet) 60 Able to Maintain Weight Bearing Status Yes During Gait Assistive Devices Assistive Device Gait Belt,Standard Walker Orthotic/Prosthetic Devices or Brace: No Gait Deviations General Gait Pattern Antalgic,Decreased Stride Length,Decreased Feet Clearance,Step-to Gait Factors Limiting Gait Function Factors Limiting Gait Function Decreased Activity Tolerance, Decreased Strength,Pain,Poor Balance Comments Gait Comments pls refer to mobility section for details Stair Climbing Assessment Evaluation Level of Assist On Stairs Maximal Assistance,1 Person Assistance Technique/Endurance Stair Climbing Direction Ascend and Descend Stair Climbing Technique Step to Step Number of Steps Climbed 3 Stair Climbing Set # Repetitions (reps) 1 Comments Stair Climbing Comments up/down steps using standard walker; friend assists pt with stair climbing M5 PT-IP Objective Assessments Start: 02/17/20 12:00 Freq: NEEDED Status: Active Protocol: Document 02/17/20 09:30 AB (Rec: 02/17/20 12:15 AB [id number]) Orientation Orientation/Cognition Level of Alertness Alert Orientation Name Language Function Ability No Deficits Noted Safety Awareness Decreased Safety Awareness Memory Description No Deficits Noted Gross Range of Motion Lower Extremity ROM Assessment Left Impaired Impairments L knee flexion: ~ 50 dec L knee extension: 20 deg less to neutral Strength Lower Extremity Strength Assessment Left Impaired Hip 3+/ Knee 3+/5 Coordination Assessment Gross Coordination Gross Coordination WNL Sensation Assessment Sensation Gross Sensation WNL Muscle Tone Muscle Tone WNL Yes M6 PT-IP Treatment Start: 02/17/20 12:00 Freq: NEEDED Status: Active Protocol: Document 02/18/20 13:05 AB (Rec: 02/18/20 14:15 AB [id number]) Physical Therapy Treatment Education Education Provided Safety M7 PT-IP Assessment and Plan Start: 02/17/20 12:00 Freq: NEEDED Status: Active Protocol: Document 02/18/20 13:05 AB (Rec: 02/18/20 14:15 AB [id number]) PT Summary Assessment and Plan Potential Rehabilitation Potential Good Summary Impairments Pain,ROM,Strength,Balance,Bed Mobility,Transfers,Gait, Activity Tolerance Progress Towards Goals Progressing Toward Goals,Safe For Discharge Assessment Summary caregiver training conducted and pt's friend is able to assist pt safely. pt plans to go home later today. pt is scheduled for outpt PT. Goals Bed Mobility Goal Independent Transfer Goal Standby Assistance,Front Wheeled Walker Gait Goal Standby Assistance,Front Wheel Walker Gait Distance 150 Other Goals ambulate using standard walker SBA 200 ft up/down 4 steps using cane CGA Days to Meet Goals 5 Frequency of Treatment Frequency Of Treatment Twice a Day Treatment Plan Physical Therapy Treatment Plan Bed Mobility Training,Transfer Training,Gait Training, Therapeutic Exercise,Balance Retraining,Post Op Education, Discharge Planning,Hot or Cold Pack,Neuromuscular Re-ed, Coordination Retraining,Manual Therapy Recommendations To Nursing Amount of Assist Needed 1 Person Assist Discharge Recommendations PT Discharge Recommendations Home with Assistance, Outpatient PT Equipment Needed for Home Before FWW if not safe with standard Discharge walker Transportation Needs at Discharge Private Vehicle
--- NOTE | 2020-02-18 14:22 | PC.NURSE ---
Discharge: Discharge instructions given, prescriptions given, valuables taken with patient. Escorted off of floor to personal vehicle with transport by friend.
== END 2020-02-18 14:20 | disposition home or self-care (01) ==
LOC: OR 02-18 07:04 → AC 02-18 07:04
PROVIDERS: Admitting Provider Orthopaedic Surgery; PCP Nurse Practitioner Family; Referring Provider Nurse Practitioner Family; Visit Provider Orthopaedic Surgery
PROC: 0SRD0JZ Replacement of Left Knee Joint with Synthetic Substitute, Open Approach (ICD-10-PCS; CPT 27447; principal; 2020-02-16 10:15)
DX: M17.12 Unilateral primary osteoarthritis, left knee (principal); I10 Essential (primary) hypertension; D62 Acute posthemorrhagic anemia
CPT/HCPCS: 27447; 36415; 73560; 85014; 85018; 94762; 97116; 97162; 97530; C1776; G0378; C9290; J0690; J2250; J2270; J2274; J2405; J3010